=== PATIENT | female | born 1995 | race Caucasian/White ===

== ENCOUNTER 2023-11-21 10:51 | Day surgery (SDC) | payer MEDICAID ==
[2023-11-21] VITALS (13 sets, daily range): BP systolic 137–152; BP diastolic 67–109; PULSE 46–59; TEMP 99.3
[~2023-11-21] VITALS: Ht 170.2 cm; Wt 116.1 kg
[2023-11-21] MEDS ORDERED: 1/2 NS 1,000 ML IV SCH (11:15)
[2023-11-21] MEDS ORDERED: diazePAM 5 MG TAB PO ONE (11:45)
[2023-11-21 11:55] LABS: HEMATOCRIT 37.3 % (37.0-47.0); HEMOGLOBIN 12.9 g/dl (12.5-16.0); MEAN CELL VOLUME 79 fl (80.0-100.0); MEAN CORPUSCULAR HEMOGLOBIN 27 pg (27-31); MEAN CORPUSCULAR HGB CONC 35 g/dl (33.0-37.0); MEAN PLATELET VOLUME 10.6 fl (7.4-10.4); PLATELET COUNT 325 K/mm3 (130-400); RED BLOOD COUNT 4.73 M/mm3 (4.10-5.30); REDCELL DISTRIBUTION WIDTH-CV 13.6 % (11.5-14.5)
[2023-11-21] MEDS ORDERED: ASPIRIN 81M81 MG/TA2 PO (11:59)
[2023-11-21] MEDS ORDERED: PAXIL 20MG20 MG PO (11:59)
[2023-11-21] MEDS ORDERED: CRESTOR40 MG PO (12:00)
[2023-11-21] MEDS ORDERED: PLAVIX 75MG TAB75 MG PO (12:00)
[2023-11-21 12:06] LABS: INR 1.2 (0.8-3.0); PROTHROMBIN TIME 12.8 SECONDS (9.7-12.8)
[2023-11-21 12:10] LABS: CALCIUM 9.4 mg/dL (8.4-10.2); CREATININE, serum 0.72 mg/dL (0.57-1.11); POTASSIUM 4.1 mEq/L (3.5-4.5)
--- NOTE | 2023-11-21 12:49 | NUR ---
SEE MERGE FOR PROCEDURE DOCUMENTATION
[2023-11-21] MEDS ORDERED: Nitroglycerin 100 MCG/ML (Cath Lab) 10 ML VIAL IA SCH (13:05)
[2023-11-21] MEDS ORDERED: niCARdipine (Cath Lab) 100 MCG/ML 10 ML VIAL IA SCH (13:08)
[2023-11-21] MEDS ORDERED: Heparin 1,000 UNITS/ML 10 ML Multi-Dose VIAL IA SCH (13:09)
[2023-11-21] MEDS ORDERED: fentaNYL 50 MCG/ML 2 ML VIAL IV SCH (13:10)
[2023-11-21] MEDS ORDERED: Iohexol 350 - 100 ML VIAL INCOR ONE (13:10)
[2023-11-21] MEDS ORDERED: Midazolam 2 MG/2 ML VIAL IV SCH (13:11)
[2023-11-21] MEDS ORDERED: Naloxone 0.4 MG/ML VIAL IV PRN (13:30)
--- NOTE | 2023-11-21 13:33 | NUR ---
PATIENT ALERT AND ORIENTED, TEARFUL AND ANXIOUS. REPORTS DISCOMFORT TO RIGHT ARM, WRAPPED IN WARM BLANKET AT THIS TIME. FOREARM SOFT TO PALPATION, ACCESS SITE CDI. PT TRANSFERRED TO BED INDEPENDENTLY AND TRANSPORTED TO [facility]. SPOUSE BROUGHT TO BEDSIDE, PLAN OF CARE REVIEWED. VITAL SIGNS TAKEN ON ARRIVAL, HYPERTENSION NOTED. BED TO LOWEST POSITION, X3 BEDRAILS IN PLACE, CALL LIGHT WITHIN REACH. TRANSFER OF CARE REPORT TO ERUM QUEEN.
[2023-11-21] MEDS ORDERED: Acetaminophen 325 MG TAB PO ONE (14:15)
[2023-11-21] MEDS ORDERED: fentaNYL 50 MCG/ML 2 ML VIAL IV ONE (15:00)
[2023-11-21] MEDS ORDERED: Albuterol/Ipratropium 3 MG-0.5 MG/3 ML Neb Soln IH ONE (17:00)
--- NOTE | 2023-11-21 18:13 | NUR ---
The pt ambulated with a steady gait to [facility] scheduled for a [facility]. Pt was accompanied by . EKG done. IV started, labs drawn. Meds and HX reviewed with the pt. Consent for the procedure signed. The pt came back to EU11 post procedure. ERUM Castillo test lab technician nurse stated the pt had reported their arm was hurting and ERUM Castillo had wrapped it with a warm blanket. This nurse went to the room to assess the right radial site. The site was clean and dry. The pt was tearful, this nurse elevated their arm with a pillow. garage laborer notified for further advice on the situation. Continue to elevate the arm and the pain is most likely due to the meds. The arm was not tender and was soft to the touch. Offerd the pt something to eat and drink, accepted a water and was given some food to snack on later in the recovery process. The pt later reported chest pain. Dr. Gardner and Dominick HOLLAND notified. Per orders an EKG was done, tylenol and nitro given. Pt still reported pain. Dr. Gardner was notified and ordered fentanyl. The fentanyl was given and the pt later stated that their arm and chest pain was better and felt more like a dull ache. 2 hrs into the recovery air was released from the radial band, 2 mls about every 15 minutes. Dominick HOLLAND came by and saw the pt, he gave the okay to continue with discharging the pt as long as their vitals were good and their Oxygen remained above 92% on room air. Once all the air from the band was released the site was cleaned. A band-aid was applied and the deflated radial band was reapplied as a reminder to limit extremity use. IV dc'd, the site was wrapped with coban. Discharge education and information discussed with the pt. No questions at the time. The pt exited the unit by wheelchair accompanied by this nurse to husbands car.
== END 2023-11-21 17:30 | disposition home or self-care (01) ==
LOC: COL.CAR 10:51
PROVIDERS: Internal Medicine Interventional Cardiology
DX: R07.89 Other chest pain (principal); R94.39 Abnormal result of other cardiovascular function study; M79.631 Pain in right forearm; R42 Dizziness and giddiness; Z87.898 Personal history of other specified conditions
CPT/HCPCS: C1769; J1644; J2250; J2404; J3010; Q9967